=== PATIENT | female | born 2000 | race Caucasian/White ===

== ENCOUNTER 2022-05-21 09:31 | Day surgery (SDC) | payer OTHER ==
[~2022-05-21] VITALS: Ht 165.1 cm; Wt 45.8 kg
[2022-05-21] MEDS ORDERED: fentaNYL citrate 0.05 MG/ML VIAL ONE (10:08)
[2022-05-21] MEDS ORDERED: diphenhydrAMINE 50 MG/ML VIAL ONE (10:08)
[2022-05-21] MEDS ORDERED: MIDAZOLAM 5 MG/5 ML VIAL ONE (10:09)
[2022-05-21] MEDS: MIDAZOLAM 5 MG/5 ML VIAL IV ONE (10:34)
[2022-05-21] MEDS: fentaNYL citrate 0.05 MG/ML VIAL IVP ONE (10:35)
[2022-05-21] MEDS: diphenhydrAMINE 50 MG/ML VIAL IVP ONE (10:36)
== END 2022-05-21 11:35 | disposition home or self-care (01) ==
LOC: MOR 09:31 → MMU 09:33 → MOR 11:35
PROVIDERS: ATTEND Internal Medicine Gastroenterology
DX: R10.9 Unspecified abdominal pain (principal); K44.9 Diaphragmatic hernia without obstruction or gangrene; K59.00 Constipation, unspecified; R14.0 Abdominal distension (gaseous); F41.9 Anxiety disorder, unspecified; F32.9 Major depressive disorder, single episode, unspecified; Z91.040 Latex allergy status; Z79.899 Other long term (current) drug therapy; Z20.822 Contact with and (suspected) exposure to COVID-19
CPT/HCPCS: 43239; 87426; J1200; J2250; J3010

== ENCOUNTER 2022-09-05 15:52 | Emergency (ER) | payer OTHER ==
[~2022-09-05] VITALS: Ht 154.9 cm; Wt 49.9 kg
[2022-09-05 16:02] VITALS: BP 127/77
[2022-09-05] MEDS ORDERED: IBUPROFEN 400 MG TAB PO ONE (17:05)
[2022-09-05] MEDS ORDERED: IBUP-1842 PO (17:51)
== END 2022-09-05 18:06 | disposition home or self-care (01) ==
LOC: MED 15:52
DX: S16.1XXA Strain of muscle, fascia and tendon at neck level, initial encounter (principal); S63.91XA Sprain of unspecified part of right wrist and hand, initial encounter; S20.219A Contusion of unspecified front wall of thorax, initial encounter; F41.9 Anxiety disorder, unspecified; F32.9 Major depressive disorder, single episode, unspecified; F90.9 Attention-deficit hyperactivity disorder, unspecified type; Z79.1 Long term (current) use of non-steroidal anti-inflammatories (NSAID); Z91.040 Latex allergy status; V89.2XXA Person injured in unspecified motor-vehicle accident, traffic, initial encounter; Y93.89 Activity, other specified; Y92.410 Unspecified street and highway as the place of occurrence of the external cause; Y99.8 Other external cause status
CPT/HCPCS: 71045; 93005; 99283